=== PATIENT | male | born 1950 | race African-American/Black ===

== ENCOUNTER → 2018-02-24 | Outpatient (CLI) | payer MEDICARE, OTHER ==
--- NOTE | 2018-02-24 10:15 | RAD ---
Left Lower extremity venous Doppler. 02/24/2018 HISTORY: Left leg swelling after left knee replacement COMPARISON: None. FINDINGS: Grayscale, Color and Doppler analysis of the Left Lower extremity deep venous system was performed with serial graded compression and augmentation. The left common femoral, femoral, and popliteal veins are widely patent with normal color Doppler imaging. Limited images of the left calf veins are unremarkable. IMPRESSION: No evidence of DVT in the left lower extremity. Electronically signed by: Navdeep Galvez MD (02/24/2018 10:12 AM) [facility]
== END | disposition home or self-care (01) ==
LOC: US 09:22
PROVIDERS: ATTEND Pediatrics Neonatal-Perinatal Medicine
DX: R22.42 Localized swelling, mass and lump, left lower limb (principal); Z98.890 Other specified postprocedural states; Z96.652 Presence of left artificial knee joint
CPT/HCPCS: 93971